=== PATIENT | male | born 2000 | race Caucasian/White ===

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

== ENCOUNTER 2022-03-24 12:38 | Observation (INO) ==
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
--- NOTE | 2022-03-22 13:29 | Anesthesiology Consultation ---
Date of Service March 22, 2022 Assessment & Plan (1) Encounter for pre-operative examination: Chart Review Chart Review: Acceptable Risk for Surgery and Patient NOT seen in Pre Admission Testing -COVID screening: Per PAT nursing assessment on 03/22/22. No known COVID-19 positive contacts or current COVID-19 related symptoms. Travel screen negative. Patient is NOT vaccinated for Covid. At surgeon discretion if preop Covid testing being done. History Surgery Operation Date: 03/24/22 13:55 Proposed Procedures p Right Knee Arthroscopy Revision Anterior Cruciate Ligament Reconstruction with Quad Tendon Allograft, Probable Ililotibal Tract Tenodesis - Jose Zamarripa MD Height/Weight Height: 5 ft 8.5 in Weight: 63.957 kg Allergies Allergy/AdvReac Type Severity Reaction Status Date / Time No Known Allergies Allergy Verified 03/22/22 12:50 Medications Home Medications Medication Instructions Recorded Confirmed Last Taken methylphenidate HCl 18 mg 18 mg PO QAM #30 tabs 12/24/21 03/22/22 Unknown tablet,extended release 24 hr ([facility]a) Past Medical History Medical History ADHD (attention deficit hyperactivity disorder), inattentive type hx-"not currently taking his medication" History of COVID-19 2020>headache, fever>resolved. Hx of concussion "has had multiple, none recently, with no residual symptoms" Medial meniscus tear Right ACL tear currently partially torn Past Family History Family History Grandmother (Paternal) Breast cancer Ovarian cancer Grandfather (Maternal) Diabetes Past Surgical History Surgical History Hx of anterior cruciate ligament tear reconstruction x2 Social History Smoking Status: Former smoker tobacco type: e-cigarettes Smoking cigarettes per day: "down to 0% nicotine in his vape" Do You Dip or Chew Tobacco: No Hx Alcohol Use: Yes Alcohol type: beer alcohol intake frequency: holidays/special occasions only Hx Substance Use: No substance use type: does not use
[~2022-03-24 12:38] MED LIST: DEXAMETHASONE SOD INJ 4 MG/ML VIAL ONE; GLYCOPYRROLATE 0.2 MG/ML VIAL ONE; KETAMINE 50 MG/5 ML SYRINGE ONE; KETOROLAC 30 MG/ML VIAL ONE; LIDOCAINE 2% MPF LOCAL 5 ML VIAL INFIL ONE; LR 15ML/HR IV SCH; MIDAZOLAM HCL 1 MG/ML 2ML VIAL ONE; ONDANSETRON INJ 2 MG/ML 2 ML VIAL ONE; PROPOFOL IV EMULSION 10 MG/ML 20 ML VIAL IV ONE; ROPIVACAINE 0.5% 5 MG/ML 30 ML VIAL ONE; ceFAZolin 2000MG 2,000 MG/15 ML SYR IV SCH; fentaNYL citrate 100 MCG/2 ML VIAL ONE
--- NOTE | 2022-03-24 14:29 | History & Physical Bridge Note ---
Date of Service March 24, 2022 History & Physical Bridge Note I have examined the patient, reviewed the History & Physical and in the interval since the performance of the History & Physical I have noted the following changes of clinical significance: no changes noted
[2022-03-24] MEDS ORDERED: fentaNYL citrate 100 MCG/2 ML VIAL IV PRN (14:30)
[2022-03-24] MEDS ORDERED: ePHEDrine sulfate 50 MG/ML AMP IV PRN (14:30)
[2022-03-24] MEDS ORDERED: ONDANSETRON INJ 2 MG/ML 2 ML VIAL IV PRN ×2 (14:30→22:52)
[2022-03-24] MEDS ORDERED: ATROPINE SULFATE 0.1 MG/ML 10ML SYR IV PRN (14:30)
[2022-03-24] MEDS ORDERED: HYDROmorphone INJ 2 MG/ML SYR/VIAL IV PRN (14:30)
[2022-03-24] MEDS ORDERED: MIDAZOLAM HCL 1 MG/ML 2ML VIAL ONE (14:38)
[2022-03-24] MEDS ORDERED: PHENYLEPHRINE 100MCG/ML 5ML SYR ONE (15:31)
[2022-03-24] MEDS ORDERED: HYDROmorphone INJ 2 MG/ML SYR/VIAL ONE (17:07)
[2022-03-24] MEDS ORDERED: ceFAZolin 330 MG/ML 1 GM VIAL ONE (18:32)
[2022-03-24] MEDS ORDERED: ceFAZolin 2000MG 2,000 MG/15 ML SYR IV STA (18:35)
--- NOTE | 2022-03-24 19:19 | Post Operative Brief Note ---
Immediate Post Op Note v1 Date of Surgery March 24, 2022 Pre & Post Diagnosis Operation Date: 03/24/22 14:00 Pre-Op Diagnosis: Right Knee posttraumatic failure ACL reconstruction with knee instability, status post revision ACL reconstruction with quadriceps tendon autograft, status post prior ACL reconstruction with hamstring autograft with posttraumatic failure of that reconstruction. 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 I identified the patient and participated in the time-out.: Yes Procedure Operation Date: 03/24/22 14:00 Actual Procedures p Right Knee Arthroscopy Revision Anterior Cruciate Ligament Reconstruction with quadriceps tendon Allograft, open extra-articular reconstruction with iliotibial band tenodesis LET procedure, arthroscopic partial lateral meniscectomy extensive debridement of ACL graft tunnels and old suture material including open excision of 2 Endobutton fixation devices lateral femur and suture material from prior surgery and ligament augmentation of ACL graft with Arthrex internal brace technique.- Jose Zamarripa MD Surgeon Jose Zamarripa MD Mail Opener Johnie ROSA Estimated Blood Loss 30 Findings Consistent with Post-Op Diagnosis Anesthesia Type General Regional Complications none Disposition Disposition: Recovery Room Overlapping Procedure I was immediately available: during the entire case.
[2022-03-24] MEDS ORDERED: oxyCODONE/ACETAMINOPHEN 5mg/325mg TAB PO PRN (19:27)
--- NOTE | 2022-03-24 19:40 | Anesthesiology Progress Note ---
Date of Service March 24, 2022 Anesthesia Post Procedure Vital Signs Vital Signs: Temp Pulse Resp BP Pulse Ox O2 Del Method 03/24/22 13:07 37 C 71 18 127/66 98 Room Air Transfer of Care Handoff Completed per policy Notes Mental Status: alert / awake / arousable Patient Amnestic to Procedure: Yes Nausea / Vomiting: adequately controlled Pain: adequately controlled Airway Patency, RR, SpO2: stable & adequate BP & HR: stable & adequate Hydration State: stable & adequate Anesthetic Complications: no major complications apparent
--- NOTE | 2022-03-24 21:08 | Communication Note ---
Date of Service: March 24, 2022 Patient is awake, pain and nausea well controlled. Meets all discharge criteria with the exception of urination, which he has been unable to do. I did use ultrasound on his abdomen, which showed a full bladder. Will allow a bit more time to pass and straight cath if he is still unable to make urine.
--- NOTE | 2022-03-24 21:45 | Communication Note ---
Date of Service: March 24, 2022 patient had successful urination. will disposition to home.
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
[2022-03-24] MEDS ORDERED: HYDROmorphone INJ 0.5 MG/0.5 ML SYR IV PRN (22:52)
[2022-03-24] MEDS ORDERED: SODIUM CHLORIDE 0.9% 1000ML 1,000 ML IV SCH (22:52)
[2022-03-24] MEDS ORDERED: NALOXONE HCL 0.4 MG/1 ML VIAL/CARP IV PRN (22:52)
[2022-03-24] MEDS ORDERED: MAGNESIUM HYDROXIDE SUSP 30 ML UDC PO PRN (22:52)
[2022-03-24] MEDS ORDERED: bisacodyL 10 MG SUPP PR PRN (22:52)
[2022-03-24] MEDS: CONCERTA~ORDER AWAITING ACTION SCH (23:07)
[2022-03-25] MEDS: CONCERTA~ORDER AWAITING ACTION SCH (08:23)
--- NOTE | 2022-03-25 08:47 | Orthopedic Progress Note ---
Date of Service March 25, 2022 Assessment & Plan (1) Rupture of anterior cruciate ligament: Plan: POD 1 s/p Revision Right ACL Recon. Pt doing well. Independent with ambulation. Plan for dc to home today. Admission and Anticipated Discharge Date Admission Date: March 24, 2022 Subjective POD 1 Pt lying in bed awake, alert . Pain is controlled. Denies N/V, SOB. Feeling well and hoping to go home today. Pt was initially dc'd yesterday but stayed due to nausea. Physical Exam Physical Exam: Dressings C/D/I. NV intact. Toes mobile. Brace in place. Results & Data ([facility]) Vital Signs (Past 12 Hours) Vital Signs Temp Pulse Pulse Resp BP Pulse Ox O2 Del Method 03/25/22 07:13 36.8 C 64 16 120/64 97 Room Air 03/25/22 03:15 36.5 C 72 18 119/77 97 Room Air 03/24/22 23:10 37.2 C 73 16 123/75 95 Room Air 03/24/22 22:07 36.6 C 58 L 20 124/68 99 Room Air 03/24/22 21:10 71 18 115/88 98 Room Air (1) Rupture of anterior cruciate ligament Encounter type: subsequent encounter Laterality: right Qualified Code(s): S83.511D - Sprain of anterior cruciate ligament of right knee, subsequent encounter
[2022-03-25] MEDS ORDERED: DOCUSATE SODIUM 100 MG CAP PO SCH (09:00)
[2022-03-25] MEDS ORDERED: MULTIVITAMIN TAB PO SCH (09:00)
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
[2022-03-25] MEDS ORDERED: SENNA 8.6 MG TAB PO SCH (21:00)
== END 2022-03-25 09:45 | disposition home or self-care (01) ==
LOC: ASU 12:38 → 3N 12:38